=== PATIENT | female | born 1965 | race African-American/Black ===

== ENCOUNTER 2020-07-28 11:08 | Emergency (ER) | payer OTHER ==
[~2020-07-28] VITALS: Ht 165.1 cm; Wt 59.0 kg
[2020-07-28] MEDS ORDERED: SUMA6CAR SQ (11:14)
[2020-07-28] MEDS ORDERED: NAPR-677 PO (11:14)
[2020-07-28] MEDS ORDERED: VENL25TA4 PO (11:19)
[2020-07-28] MEDS ORDERED: QUET25TA PO (11:19)
[2020-07-28] MEDS ORDERED: BACL-141 PO (11:19)
[2020-07-28] MEDS ORDERED: MILN25TA PO (11:19)
[2020-07-28] MEDS ORDERED: GABA-529 PO (11:19)
[2020-07-28] MEDS ORDERED: ACETAMINOPHEN 325MG TABLET PO STA (11:43)
[2020-07-28] MEDS ORDERED: METOCLOPRAMIDE HCL 10MG/2ML VIAL IV ONE (11:45)
[2020-07-28] MEDS ORDERED: SODIUM CHLORIDE 0.9% 1,000 ML IV ONE (11:45)
[2020-07-28] MEDS ORDERED: DEXAMETHASONE 10 MG/ML VIAL IV ONE (11:45)
[2020-07-28] MEDS ORDERED: DIPHENHYDRAMINE 50MG/ML VIAL IV ONE (11:45)
[2020-07-28 12:28] LABS: BASOPHILS % 0.6 % (0.0-2.0); EOSINOPHILS % 2.4 % (0.0-5.0); HEMATOCRIT. 40.4 % (36.0-48.0); HEMOGLOBIN. 13.5 g/dL (12.0-16.0); LYMPHOCYTES % 35.9 % (20.0-50.0); MEAN CORPUSCULAR HEMOGLOBIN 33.7 pg (28.0-32.0); MEAN CORPUSCULAR VOLUME 101.1 fL (81.0-99.0); MONOCYTES % 7.6 % (2.0-8.0); NEUTROPHILS % 53.5 % (40.0-76.0); PLATELET 239 x1000/uL (130-400); RED CELL DISTRIBUTION WIDTH 14.3 % (11.6-14.6)
[2020-07-28 12:34] LABS: CHLORIDE 109 mEq/L (98-107)
[2020-07-28 13:49] LABS: INR 1.1; PROTHROMBIN TIME 11.1 sec (9.6-11.0)
[2020-07-28] MEDS ORDERED: MAGNESIUM 1 G PREMIX 100 ML IV NR (15:00)
[2020-07-28 17:21] VITALS: BP 133/76
== END 2020-07-28 17:21 | disposition home or self-care (01) ==
LOC: ER 11:08
DX: I10 Essential (primary) hypertension (principal); F31.9 Bipolar disorder, unspecified; M79.7 Fibromyalgia; Z79.899 Other long term (current) drug therapy
CPT/HCPCS: 36415; 70450; 71045; 80053; 85025; 85610; 96361; 96365; 96375; 99285; J1100; J1200; J2765; J3475; J7030

== ENCOUNTER 2020-09-16 11:49 | Emergency (ER) | payer OTHER ==
[~2020-09-16] VITALS: Ht 165.1 cm; Wt 68.0 kg
[~2020-09-16 11:49] MED LIST: BACL-141 PO; GABA-529 PO; MILN25TA PO; NAPR-677 PO; QUET25TA PO; SUMA6CAR SQ; VENL25TA4 PO
[2020-09-16] MEDS ORDERED: ACET-2708 PO (12:10)
[2020-09-16] MEDS ORDERED: NAPR-681 PO (12:10)
[2020-09-16] MEDS ORDERED: QUET400T PO (12:10)
[2020-09-16] MEDS ORDERED: GABA-532 PO (12:10)
[2020-09-16] MEDS ORDERED: MILN50TA PO (12:10)
[2020-09-16] MEDS ORDERED: SUMA20SP NS (12:10)
[2020-09-16] MEDS ORDERED: DIVA500T51 PO (12:10)
[2020-09-16] MEDS ORDERED: VENL-180 PO (12:10)
[2020-09-16] MEDS ORDERED: ACETAMINOPHEN 325MG TABLET PO STA (12:36)
[2020-09-16] MEDS ORDERED: SUMATRIPTAN SUCCINATE 25MG TABLET PO ONE (12:45)
[2020-09-16] MEDS ORDERED: HALOPERIDOL 5MG TABLET PO ONE (12:45)
[2020-09-16 13:18] LABS: BASOPHILS % 0.8 % (0.0-2.0); EOSINOPHILS % 4.3 % (0.0-5.0); HEMATOCRIT. 41.7 % (36.0-48.0); HEMOGLOBIN. 13.8 g/dL (12.0-16.0); LYMPHOCYTES % 55.9 % (20.0-50.0); MEAN CORPUSCULAR HEMOGLOBIN 33.4 pg (28.0-32.0); MEAN CORPUSCULAR VOLUME 101.1 fL (81.0-99.0); MEAN PLATELET VOLUME 8.2 fl (7.4-10.4); MONOCYTES % 7.4 % (2.0-8.0); NEUTROPHILS % 31.6 % (40.0-76.0); PLATELET 251 x1000/uL (130-400); RED BLOOD CELL COUNT 4.12 mill/uL (4.2-5.4); RED CELL DISTRIBUTION WIDTH 15.1 % (11.6-14.6)
[2020-09-16 13:23] LABS: CHLORIDE 110 mEq/L (98-107)
[2020-09-16] MEDS ORDERED: MORPHINE SULFATE 4 MG/ML CPJ (NOT FOR IM USE) IV ONE ×2 (15:00→16:45)
[2020-09-16 16:41] LABS: CLARITY URINE CLEAR (CLEAR); COLOR URINE YELLOW (YELLOW); KETONES URINE 1+ (NEGATIVE); LEUKOCYTE ESTERASE URINE NEGATIVE (NEGATIVE); NITRITE URINE NEGATIVE (NEGATIVE); OCCULT BLOOD URINE NEGATIVE (NEGATIVE); PH URINE 5.5 (4.5-8.0); PROTEIN URINE TRACE (NEGATIVE); SPECIFIC GRAVITY URINE 1.039 (1.005-1.030)
[2020-09-16 17:03] VITALS: BP 118/87
== END 2020-09-16 17:07 | disposition home or self-care (01) ==
LOC: ER 11:49
DX: M79.7 Fibromyalgia (principal); M54.30 Sciatica, unspecified side; F31.9 Bipolar disorder, unspecified; Z88.1 Allergy status to other antibiotic agents; Z88.2 Allergy status to sulfonamides
CPT/HCPCS: 36415; 80048; 81003; 85025; 93005; 96374; 96376; 99284; J1630; J2270; Z7610